=== PATIENT | female | born 1970 | race Caucasian/White ===

== ENCOUNTER 2019-01-03 08:24 | Emergency (ER) | payer MEDICAID ==
[~2019-01-03] VITALS: Wt 63.8 kg
[~2019-01-03 08:24] MED LIST: ACET325T33 PO; FAMO-96 PO
[2019-01-03] MEDS ORDERED: KETOROLAC 30 MG INJ IV STA (09:05)
[2019-01-03] MEDS ORDERED: SOD CHLORIDE 0.9% 1,000 ML IV STA (09:05)
[2019-01-03] MEDS ORDERED: DIPHENHYDRAMINE 50 MG INJ IV STA (09:05)
[2019-01-03] MEDS ORDERED: ONDANSETRON 4 MG INJ IV STA (09:05)
[2019-01-03] MEDS ORDERED: ONDA4TAB14 PO (10:23)
[2019-01-03] MEDS ORDERED: BUTA1CAP38 PO (10:23)
[2019-01-03 10:36] VITALS: BP 120/69; PULSE 60; RESP 16
--- NOTE | 2019-01-03 13:20 | ERD ---
ER Documentation Chief Complaint Chief Complaint headache intermittent for 3 mos. worse today. no neuro def. nausea no vomit HPI 48-year-old female presenting with a headache is been intermittent for the last 3 months that is worse today. She states it comes and goes however it has intensified today. She states it is her total head and she has nausea but no vomiting. Denies acute falls or injuries. Denies medical problems. NKDA. Surgical history . Social history denies ROS All systems reviewed and are negative except as per history of present illness. Medications Home Meds Active Scripts Ondansetron (Ondansetron Odt) 4 Mg Tab.rapdis, 4 MG PO Q6H PRN for NAUSEA AND/OR VOMITING, #10 TAB Prov:MANSOOR DAMON PA-C 01/03/19 Gnahmvqnyr-Aiveffstzccff-Isowswll* (Fioricet*) 50-300-40 Mg Capsule, 1 CAP PO Q4H PRN for HEADACHE, #30 CAP Prov:MANSOOR DAMON PA-C 01/03/19 Famotidine* (Pepcid*) 20 Mg Tablet, 20 MG PO BID for 4 Days, TAB Prov:MANSOOR DAMON PA-C 08/13/15 Acetaminophen* (Tylenol*) 325 Mg Tablet, 2 TAB PO Q8 PRN for PAIN AND OR ELEVATED TEMP, #20 TAB Prov:MANSOOR DAMON PA-C 08/13/15 Allergies Allergies: Coded Allergies: No Known Allergy (Unverified , 01/03/19) PMhx/Soc History of Surgery: Yes (, left eye sx) Anesthesia Reaction: No Hx Neurological Disorder: No Hx Respiratory Disorders: No Hx Cardiac Disorders: No Hx Psychiatric Problems: No Hx Miscellaneous Medical Probl: No Hx Alcohol Use: No Hx Substance Use: No Hx Tobacco Use: No Smoking Status: Never smoker FmHx Family History: No diabetes, No coronary disease, No other Physical Exam Vitals Vital Signs Date Temp Pulse Resp B/P (MAP) Pulse Ox O2 O2 Flow FiO2 Time Delivery Rate 01/03/19 60 16 120/69 100 Room Air 10:36 (86) 01/03/19 97.8 66 18 140/62 98 08:28 (88) Physical Exam GENERAL: The patient is well-appearing, well-nourished, in no acute distress HEENT: Atraumatic. Conjunctivae are pink. Pupils equal, round, and reactive to light. There is no scleral icterus. Tympanic membranes clear bilaterally. Oropharynx clear. NECK: C-spine is soft and supple. There is no meningismus. There is no cervical lymphadenopathy. CHEST: Clear to auscultation bilaterally. There are no rales, wheezes or rhonchi. HEART: Regular rate and rhythm. No murmurs, clicks, rubs or gallops. EXTREMITIES: Equal pulses bilaterally. There is no peripheral clubbing, cyanosis or edema. No focal swelling or erythema. Full range of motion. NEUROLOGIC: Alert and oriented. Cranial nerves II through XII intact. Motor strength in all 4 extremities with 5 out of 5 strength. Sensation grossly int act. Normal speech and gait. Results 24 hrs Laboratory Tests Test 01/03/19 09:17 Urine Color YELLOW Urine Clarity SLIGHTLY CLOUDY Urine pH 7.0 Urine Specific [place] 1.020 Urine Ketones NEGATIVE mg/dL Urine Nitrite NEGATIVE mg/dL Urine Bilirubin NEGATIVE mg/dL Urine Urobilinogen NEGATIVE mg/dL Urine Leukocyte Esterase NEGATIVE Lizeth/ul Urine Microscopic RBC 3 /HPF Urine Microscopic WBC 0 /HPF Urine Squamous Epithelial Cells FEW /HPF Urine Amorphous Crystals FEW /HPF Urine Hemoglobin 2+ mg/dL Urine Glucose NEGATIVE mg/dL Urine Total Protein NEGATIVE mg/dl POC Beta HCG, Qualitative NEGATIVE Current Medications Medications Dose Sig/Nadine Start Time Status Last (Trade) Ordered Route PRN Stop Time Admin Dose Reason Admin Sodium 1,000 ml @ Q1H STAT 01/03/19 DC 01/03/19 Chloride 1,000 mls/hr IV 09:05 01/03/19 09:23 10:04 Ondansetron 4 mg ONCE STAT 01/03/19 DC 01/03/19 HCl (Zofran IV 09:05 01/03/19 09:22 Inj) 09:07 Ketorolac 30 mg ONCE STAT 01/03/19 DC 01/03/19 Tromethamine IV 09:05 01/03/19 09:23 (Toradol) 09:07 25 mg ONCE STAT 01/03/19 DC 01/03/19 Diphenhydrami IV 09:05 01/03/19 09:22 ne HCl 09:07 (Benadryl) Procedures/MDM DIAGNOSTIC IMAGING REPORT Patient: SHIRLEY GUTIERREZ : 1970 Age: 48 Sex: F MR #: [id number] [place] #: [id number] DOS: 01/03/19904 Ordering MD: FELTON DAMON PA-C Location: [facility] Room/Bed: PROCEDURE: CT BRAIN WITHOUT CONTRAST CLINICAL INDICATION: Headache. TECHNIQUE: Transaxial CT examination of the head was performed without intravenous administration of contrast on a [id number] Limited helical CT scanner. In addition to the brain and bone windows of transaxial images, multiple sagittal and coronal reformatted images were generated for the interpretation. DICOM images are available. Radiation dose: CTDIvol = 40 mGy; total DLP = 555 mGy-cm. One or more of the following dose reduction techniques were used: - Automated exposure control. - Adjustment of the mA and/or kV according to patient size. - Use of iterative reconstruction technique. COMPARISON: None. FINDINGS: Evaluation of the supratentorial compartment demonstrates no hemorrhage, cerebral infarction, mass effect, midline shift, or abnormal extra-axial fluid collection. The ventricles are normal in size. Mild enlargement of the cortical sulci in a pattern of atrophy is upper limits of normal for the age. Evaluation of the posterior fossa reveals no hemorrhage, infarction, or mass effect. A slight atrophic change is compatible with the age of patient. The cerebellar tonsils are in normal position relative to the foramen magnum. The skull is intact without abnormal bone density or destructive lesion. Bilateral mastoid air cells and the visualized paranasal sinuses are normally aerated. IMPRESSION: 1. No intracranial hemorrhage, hydrocephalus, or cerebral infarction. ER Course: 1L NS, Toradol, Benadryl and Zofran given in ED MDM: 48-year-old female presenting with headache. Patient symptoms resolved with medication and fluids given the ER. I have low suspicion for intracranial hemorrhage or neuro deficit. Patient CT scan is within normal limits. Patient is discharged with supportive medications and told to follow-up with primary care within 1 to 2 days for close evaluation. Patient is told symptoms change or worsen to return immediately to the ER. All questions answered at discharge Departure Diagnosis: Primary Impression: Headache Condition: Stable Patient Instructions: Self-Care for Headaches Referrals: COMMUNITY CLINICS YOU HAVE RECEIVED A MEDICAL SCREENING EXAM AND THE RESULTS INDICATE THAT YOU DO NOT HAVE A CONDITION THAT REQUIRES URGENT TREATMENT IN THE EMERGENCY DEPARTMENT. FURTHER EVALUATION AND TREATMENT OF YOUR CONDITION CAN WAIT UNTIL YOU ARE SEEN IN YOUR DOCTORS OFFICE WITHIN THE NEXT 1-2 DAYS. IT IS YOUR RESPONSIBILITY TO M BRIANA AN APPOINTMENT FOR FOLOW-UP CARE. IF YOU HAVE A PRIMARY DOCTOR --you should call your primary doctor and schedule an appointment IF YOU DO NOT HAVE A PRIMARY DOCTOR YOU CAN CALL OUR PHYSICIAN REFERRAL HOTLINE AT IF YOU CAN NOT AFFORD TO SEE A PHYSICIAN YOU CAN CHOSE FROM THE FOLLOWING [facility] [address] [facility] [address] [facility] [facility] [address] [facility] [address] [facility] [address] [facility] [facility]. [address] Additional Instructions: FOLLOW UP WITH YOUR PRIMARY CARE PHYSICIAN TOMORROW.Return to this facility if you are not improving as expected. MANSOOR DAMON PA-C Jan 03, 2019 13:20
== END 2019-01-03 10:35 | disposition home or self-care (01) ==
LOC: FTE 08:24
DX: R51 Headache (principal); R11.0 Nausea
CPT/HCPCS: 70450; 81001; 81025; 96361; 96374; 96375; J1200; J1885; J2405; J7030; Z7502